=== PATIENT | male | born 2000 | race African-American/Black ===

== ENCOUNTER 2025-09-16 14:25 | Emergency (ER) | payer SELFPAY ==
[~2025-09-16] VITALS: Ht 185.4 cm; Wt 68.0 kg
[2025-09-16 14:42] VITALS: O2SAT 100
[2025-09-16] MEDS ORDERED: PERM60CR20 TP (15:23)
[2025-09-16 16:04] VITALS: BP 120/77; PULSE 66; RESP 16; TEMP 36.7; O2SAT 100
== END 2025-09-16 16:05 | disposition home or self-care (01) ==
LOC: ER 14:25
DX: B86 Scabies (principal)
CPT/HCPCS: 99282